=== PATIENT | male | born 1995 | race Caucasian/White ===

== ENCOUNTER 2020-07-15 09:13 | Emergency (ER) | payer OTHER ==
[~2020-07-15] VITALS: Ht 177.8 cm; Wt 126.1 kg
[2020-07-15 09:29] VITALS: BP 129/67; Ht 177.8 cm; Wt 126.1 kg
== END 2020-07-15 13:16 | disposition home or self-care (01) ==
LOC: ED 09:13
DX: S80.02XA Contusion of left knee, initial encounter (principal); L98.9 Disorder of the skin and subcutaneous tissue, unspecified; E66.9 Obesity, unspecified; Z68.39 Body mass index [BMI] 39.0-39.9, adult; Z88.0 Allergy status to penicillin; W01.0XXA Fall on same level from slipping, tripping and stumbling without subsequent striking against object, initial encounter; Y93.89 Activity, other specified; Y92.89 Other specified places as the place of occurrence of the external cause; Y99.0 Civilian activity done for income or pay
CPT/HCPCS: Q0092

== ENCOUNTER 2020-08-25 16:05 | Emergency (ER) | payer SELFPAY ==
[~2020-08-25] VITALS: Ht 180.3 cm; Wt 111.1 kg
[2020-08-25 17:04] VITALS: BP 118/57; Ht 180.3 cm; Wt 111.1 kg
== END 2020-08-25 19:37 | disposition home or self-care (01) ==
LOC: ED 16:05
DX: S83.92XA Sprain of unspecified site of left knee, initial encounter (principal); Z88.0 Allergy status to penicillin; X58.XXXA Exposure to other specified factors, initial encounter; Y93.89 Activity, other specified; Y92.89 Other specified places as the place of occurrence of the external cause; Y99.8 Other external cause status